=== PATIENT | female | born 1960 | race Caucasian/White ===

== ENCOUNTER 2017-07-30 08:20 | Day surgery (SDC) | payer OTHER ==
[2017-07-29 11:52] VITALS: BMI 29.2
[2017-07-30] MEDS ORDERED: MIDAZOLAM HCL 2 MG/2 ML SINGLE DOSE VIAL ONE (09:10)
[2017-07-30] MEDS ORDERED: PROPOFOL 20 ML ONE ×2 (09:11)
[2017-07-30] MEDS ORDERED: methylPREDNISolone ACET (DEPO) 40 MG/1 ML VIAL ONE (09:20)
[2017-07-30] MEDS ORDERED: BUPIVACAINE HCL/PF 2.5 MG/ML - 30 ML VIAL IJ ONE (09:20)
[2017-07-30] MEDS ORDERED: LIDOCAINE HCL 1%, 10 MG/ML (20ML VIAL) ONE (09:20)
[2017-07-30] MEDS ORDERED: LIDOCAINE HCL/PF 2% SDV 5ML VIAL ONE (09:35)
[2017-07-30] MEDS ORDERED: ceFAZolin SODIUM 1 GM VIAL ONE (09:35)
[2017-07-30] MEDS ORDERED: DEXAMETHASONE SOD PHOSPHATE 4 MG/1 ML VIAL ONE (09:46)
[2017-07-30] MEDS ORDERED: ONDANSETRON 4 MG/2 ML VIAL ONE (09:46)
[2017-07-30] MEDS ORDERED: methylPREDNISolone ACET (DEPO) 40 MG/1 ML VIAL IM ONE (09:59)
[2017-07-30] MEDS ORDERED: LIDOCAINE 1% P/F 10 MG/ML VIAL INF ONE (10:02)
[2017-07-30] MEDS ORDERED: ONDANSETRON 4 MG/2 ML VIAL IVPUSH PRN (10:04)
[2017-07-30] MEDS ORDERED: oxyCODONE HCL 5 MG TABLET PO PRN ×2 (10:04)
[2017-07-30] MEDS ORDERED: BUPIVACAINE HCL/PF 0.25% (2.5MG/ML) 10 ML VIAL IJ ONE (10:19)
[2017-07-30 12:35] VITALS: BP 125/67; PULSE 66; TEMP 97.7
--- NOTE | 2017-08-02 11:27 | OP ---
DATE OF OPERATION: 07/30/2017 SURGEON: Kurt Lazaro MD CHIEF LOAD DISPATCHER: OMARI Welch PREOPERATIVE DIAGNOSIS: Right ankle mass. POSTOPERATIVE DIAGNOSIS: Right ankle mass. PROCEDURE: Excision right ankle mass including soft tissue and anterior tibial bone spur. FINDINGS: 1. Thickened ganglion cyst extending from the anterior tibiotalar joint. 2. Bone spur 4 cm x 2 cm anterior tibia. DESCRIPTION OF PROCEDURE: Informed consent was obtained. The patient was taken to the operating room where the right lower extremity was prepped and draped in sterile fashion. Tourniquet was placed on the upper leg and inflated to 250 mmHg. Incision was made in the area of the mass. This was taken down finding the areas of the ganglion cyst. Ganglion was identified, and stalk was taken down to the tibiotalar joint. This was removed, and the capsule was opened. The probe and inspection of the wound showed a large tibial spur. This was cleared of soft tissue, and a rongeur was used for removal of the bony spur contributing to the formation of the cyst. The wound was irrigated with copious amounts of irrigation. Closed with 0 Vicryl, 2-0 Vicryl, 3-0 nylon. Sterile dressing was placed. The patient was transferred to recovery room without complication. KURT LAZARO M.D. [id number]
--- NOTE | 2017-08-03 14:02 | PATH ---
Surgical Pathology Report Patient Name: JOSE DE JESUS ZULUAGA [facility]. Rec. #: [id number] /Age/Gender: 1960 (Age: 57) / F Account: [id number] Location: [facility] Taken: 07/30/2017 Received: 07/30/2017 Reported: 08/03/2017 Physicians: Sudarshan Griffin M.D. Specimen(s) Received A: RIGHT ANKLE MASS B: RIGHT DISTAL TIBIA BONE SPUR Clinical History Right ankle ganglion cyst Final Diagnosis A. SOFT TISSUE, RIGHT ANKLE, EXCISION: GANGLION CYST. B. BONE, RIGHT DISTAL TIBIAL BONE SPUR, EXCISION: BENIGN BONE AND CARTILAGE WITH REACTIVE CHANGES. Electronically Signed Sebastian Quintanilla M.D. Gross Description A. Received in formalin labeled "right ankle mass," is a 1.5 x 1.2 x 0.3 cm aggregate of giraldo, irregular portions of soft tissue, consistent with a disrupted cyst. The specimen is entirely submitted in one cassette. B. Received in formalin labeled "right distal tibial bone spur," is a 1.8 x 1.0 x 0.2 cm aggregate of giraldo-yellow bone fragments. The specimen is entirely submitted in one cassette, following decalcification. 08/02/201708/02/2017
== END 2017-07-30 12:25 | disposition home or self-care (01) ==
LOC: FASU 08:20
PROVIDERS: ATTEND Orthopaedic Surgery
PROC: 0QBG0ZZ Excision of Right Tibia, Open Approach (ICD-10-PCS; 2017-07-30)
PROC: 0SBF0ZZ Excision of Right Ankle Joint, Open Approach (ICD-10-PCS; principal; 2017-07-30 09:55)
DX: M67.471 Ganglion, right ankle and foot (principal); M25.771 Osteophyte, right ankle
CPT/HCPCS: 88304-TC; 88311-TC; 94760

== ENCOUNTER 2021-02-07 08:18 | Day surgery (SDC) | payer OTHER ==
[2021-02-05 12:56] VITALS: BMI 32.0
[~2021-02-07 08:18] MED LIST: BUPIVACAINE HCL/PF 0.25% (2.5MG/ML) 10 ML VIAL IJ ONE
[2021-02-07] MEDS ORDERED: BUPIVACAINE HCL/PF 2.5 MG/ML - 30 ML VIAL IJ ONE (09:46)
[2021-02-07] MEDS ORDERED: MIDAZOLAM HCL 2 MG/2 ML SINGLE DOSE VIAL ONE (09:56)
[2021-02-07] MEDS ORDERED: ceFAZolin SODIUM 1 GM VIAL ONE (09:56)
[2021-02-07] MEDS ORDERED: PROPOFOL 20 ML ONE (09:56)
[2021-02-07] MEDS ORDERED: ONDANSETRON 4 MG/2 ML VIAL ONE ×2 (10:24→11:04)
[2021-02-07] MEDS ORDERED: DEXAMETHASONE SOD PHOSPHATE 4 MG/1 ML VIAL ONE (10:24)
[2021-02-07] MEDS ORDERED: KETOROLAC TROMETHAMINE 30 MG/1 ML VIAL ONE (10:25)
[2021-02-07] MEDS ORDERED: BUPIVACAINE HCL/PF 0.25% (2.5MG/ML) 10 ML VIAL IJ ONE (10:45)
[2021-02-07] MEDS ORDERED: oxyCODONE HCL 5 MG TABLET PO PRN (10:59)
[2021-02-07] MEDS ORDERED: ONDANSETRON 4 MG/2 ML VIAL IVPUSH PRN (10:59)
[2021-02-07] MEDS ORDERED: LACTATED RINGERS SOLUTION 1,000 ML IV SCH (11:00)
[2021-02-07] MEDS ORDERED: ACETAMINOPHEN 1000 MG/100 ML VIAL (NON FORMULARY) IVPB PRN (11:00)
[2021-02-07] MEDS ORDERED: ACETAMINOPHEN INJECTION 100 ML IVPB ONE (11:04)
[2021-02-07] MEDS ORDERED: oxyCODONE HCL 5 MG TABLET ONE (12:20)
[2021-02-07 13:15] VITALS: TEMP 98.1
[2021-02-07 13:17] VITALS: BP 122/72; PULSE 70
== END 2021-02-07 13:20 | disposition home or self-care (01) ==
LOC: FASU 08:18
PROVIDERS: ATTEND Orthopaedic Surgery
PROC: 0SBD4ZZ Excision of Left Knee Joint, Percutaneous Endoscopic Approach (ICD-10-PCS; 2021-02-07)
PROC: 0SBD4ZZ Excision of Left Knee Joint, Percutaneous Endoscopic Approach (ICD-10-PCS; 2021-02-07)
PROC: 0SBD4ZZ Excision of Left Knee Joint, Percutaneous Endoscopic Approach (ICD-10-PCS; 2021-02-07)
PROC: 0SBD4ZZ Excision of Left Knee Joint, Percutaneous Endoscopic Approach (ICD-10-PCS; principal; 2021-02-07 10:27)
DX: S83.242A Other tear of medial meniscus, current injury, left knee, initial encounter (principal); S83.282A Other tear of lateral meniscus, current injury, left knee, initial encounter; M65.862 Other synovitis and tenosynovitis, left lower leg; S83.8X2A Sprain of other specified parts of left knee, initial encounter; M23.8X2 Other internal derangements of left knee; X58.XXXA Exposure to other specified factors, initial encounter; Y92.9 Unspecified place or not applicable; Y93.9 Activity, unspecified
CPT/HCPCS: 88304-TC; 94760; J0131